=== PATIENT | female | born 1955 | race Two or more races ===

== ENCOUNTER 2019-02-18 01:31 | Observation (INO) | payer MEDICARE, MEDICAID ==
[2019-02-17 15:49] LABS: INR 0.95
[2019-02-18] VITALS (13 sets, daily range): BP systolic 100–136; BP diastolic 51–75; Ht 165.1 cm; Wt 109.8 kg
[~2019-02-18] VITALS: Ht 165.1 cm; Wt 109.8 kg
[~2019-02-18 01:31] MED LIST: ATOR20TA22 PO; HYDR-393 PO; LACT1CAP9 PO; LEVO-3 PO; METF-450 PO; SENN25TA PO
[2019-02-18] MEDS ORDERED: LIDOCAINE MPF 1% 5 ML VIAL ONE (07:35)
[2019-02-18] MEDS ORDERED: METOCLOPRAMIDE 10 MG/2 ML SDV ONE (07:35)
[2019-02-18] MEDS ORDERED: PROPOFOL EMUL(*) 10MG/ML 20 ML 40 ML ONE (07:35)
[2019-02-18] MEDS ORDERED: ONDANSETRON 4 MG/2 ML VIAL ONE (07:35)
[2019-02-18] MEDS ORDERED: DEXAMETHASONE SOD 4 MG/ML VIAL ONE (07:36)
[2019-02-18] MEDS ORDERED: fentaNYL CITR 100 MCG/2 ML AMP ONE (07:37)
[2019-02-18] MEDS ORDERED: ceFAZolin(*) 2GM/D5W 50ML 50 ML IVPB ONE (07:45)
[2019-02-18] MEDS ORDERED: PREGABALIN 150 MG CAPSULE PO ONE (07:45)
[2019-02-18] MEDS ORDERED: BACITRACIN 50000 UNIT/VIAL 100,000 UNIT in NS 0.9% 3000 ML IRRIGATION BAG 3,000 ML IR ONE (07:45)
[2019-02-18] MEDS ORDERED: LIDOCAINE/SOD BICARB 8.4% SYR ID ONE (07:45)
[2019-02-18] MEDS ORDERED: ACETAMINOPHEN 500 MG TAB PO ONE (07:45)
[2019-02-18] MEDS ORDERED: MIDAZOLAM 2 MG/2 ML VIAL IVP PRN (07:45)
[2019-02-18] MEDS ORDERED: TRANEXAMIC AC 1000 MG/10ML SDV 1,000 MG in DEXTROSE 5% 50 ML BAG 50 ML IV ONE (07:45)
[2019-02-18] MEDS ORDERED: CELECOXIB 200 MG CAP PO ONE (07:45)
[2019-02-18] MEDS ORDERED: FAMOTIDINE 20 MG TAB PO ONE (07:45)
[2019-02-18] MEDS ORDERED: ROPIVACAINE/EPI/CLONIDINE/KET 50 ML SYRINGE INJ ONE (07:45)
[2019-02-18] MEDS ORDERED: NORMOSOL R SOLN(*) 1000 ML BAG 1,000 ML IV PRN (07:45)
[2019-02-18] MEDS ORDERED: ePHEDrine 25 MG/5 ML DISP.SYR IVP ONE (08:52)
[2019-02-18] MEDS ORDERED: MAGNESIUM CITRATE 300 ML BTL PO PRN (10:55)
[2019-02-18] MEDS ORDERED: ZOLPIDEM TARTRATE 5 MG TAB PO PRN (10:55)
[2019-02-18] MEDS ORDERED: MAGNESIUM HYDROXIDE* 30ML UDCP PO PRN (10:55)
[2019-02-18] MEDS ORDERED: BISACODYL 10 MG SUPP PR PRN (10:55)
[2019-02-18] MEDS ORDERED: FLUSH 10 ML SYR IVP PRN (10:55)
[2019-02-18] MEDS ORDERED: PROMETHAZINE 25 MG/ML 1 ML AMP IVP PRN (10:55)
[2019-02-18] MEDS ORDERED: ONDANSETRON 4 MG/2 ML VIAL IVP PRN (10:55)
[2019-02-18] MEDS ORDERED: diphenhydrAMINE 25 MG CAP PO PRN (10:55)
[2019-02-18] MEDS ORDERED: LR 1000 ML BAG 1000 ML IV PRN (10:55)
[2019-02-18] MEDS ORDERED: diphenhydrAMINE 50 MG/ML VIAL IVP PRN (10:55)
--- NOTE | 2019-02-18 11:09 | RADIOLOGY IMAGING REPORT ---
FACILITY: [facility] - [place] PATIENT NAME: Omaira Welsh : 1955 MR: [id number] V: [id number] EXAM DATE: ORDERING PHYSICIAN: VIVIANA ACKERMAN TECHNOLOGIST: Location: [facility] [place] Patient: Omaira Welsh : 1955 Visit/Account:[id number] Date of Sevice: 02/18/2019 KNEE LIMITED LEFT Indication: Postoperative. Arthroplasty placement. Comparison: None available Findings: 2 views left knee were obtained. A left total knee arthroplasty with patellar resurfacing has been placed. No periprosthetic fracture. There is gas within the joint space and within the overlying soft tissues. IMPRESSION: 1. Left total knee arthroplasty placement with patellar resurfacing in near-anatomic alignment. Report Dictated By: Ivan Little at 02/18/2019 11:03 AM Report E-Signed By: Ivan Little at 02/18/2019 11:04 AM WSN:[id number]
[2019-02-18] MEDS: oxyCODON/ACET (*)5/325MG (CII) 1 TAB TAB PO PRN ×3 (12:22→20:53)
--- NOTE | 2019-02-18 13:25 | OPERATIVE REPORT 1 ---
EVENT DATE: February 18, 2019 SURGEON: Ramakrishna Rivero MD ANESTHESIOLOGIST: Nate Pike MD ANESTHESIA: General plus spinal. SOAP SLABBER: ELIAZAR Grimaldo PREOPERATIVE DIAGNOSIS Left knee osteoarthritis. POSTOPERATIVE DIAGNOSIS Left knee osteoarthritis. PROCEDURE PERFORMED Left total knee arthroplasty FINDINGS The patient had a significant amount of arthritic changes associated with her knee. ESTIMATED BLOOD LOSS About 150 mL. DRAINS None. SPECIMENS None. COMPLICATIONS None. TOURNIQUET TIME About 15 minutes. IMPLANTS USED DePuy Attune size 5 posterior stabilized femur and a size rotating platform tibia, a 5 x 7 rotating platform poly insert and a 32 anatomic patella. INDICATIONS AND HISTORY This patient is a 63-year-old female that presented to my clinic for evaluation of left knee pain and irritation going on for some time. She continued to have pain and irritation despite conservative management and tried multiple nonoperative attempts and once she was not getting better, she wanted to go ahead with a total knee arthroplasty. We did talk to her very specifically about smoking and also about the pain medication that she is currently on and that both of these have worse outcomes associated with the total knee replacement. She said she understood that and the risk and benefits were discussed at the last clinic visit and informed consent was obtained at that time. DESCRIPTION OF PROCEDURE As the patient was brought in the operating room, she and the procedure were both verified. She was placed supine on the operative table and was given spinal by anesthesia and then laid back down and then was induced and intubated by anesthesia. The left lower extremity was then prepped and draped in the usual fashion and a timeout was observed verifying the correct patient and procedure. The standard incision was made over the anterior aspect of the knee, utilizing the old incision and then curving it back up above the patella. I went through the skin and subcutaneous tissue until I was able to get down to the medial parapatellar approach. I then did a medial parapatellar approach to open up the knee and the knee everted and knee cap to the side. Once I was able to do this, I was then able to flex the knee up. We were able to cauterize a lot of the bleeders and irritation throughout the knee itself on the way and then was able to get to the ACL. Once I got to the ACL, I then removed the ACL and and the majority of the PCL in one block and then was able to take a small rongeur with the front part of the femur in order to then insert the intramedullary guide. The intramedullary guide from the [employer] [place] system was utilized and then we put the first cutting block on 5 and 9, pinned it in place and then cut the distal femur. I was then able to size the distal femur to a size 5. We then put in the 5 four-in-one cutting block and then was able to cut anterior and posterior and then also made the chamfer cuts without any major difficulty. I then put in the notch cutting block without any difficulty and then cut the posterior aspects of the osteophytes on the back-side of the femur. I then turned attention to the tibia where we were able to remove the rest of the menisci after subluxing the tibia forward. This was then followed by drilling the knee centrally into the intramedullary canal of the tibia and then using the intramedullary guide for the tibia in order to cut 3 mm off the medial side. I then pinned the cutting block in place and then cut the proximal tibia without any difficulty. I then cleaned up the rest of the back of the knee and there was still some residual meniscus which had been extruded back in the medial and lateral sides. We were able to take good care of this and then released a little bit of the capsule posteriorly. I then prepped the tibia with a 5 tray without any major issues and then put in the trial components. The trial components flexed and extended very well with the 5 mm insert, but was a little bit better and had a little less slop associated with it with the 7 mm polyp insert with full extension. Therefore, we then irrigated with copious amounts of saline which we had throughout the case using pulsatile lavage. I then everted the patella one more time and then cut 7.5 mm off of the patella and then prepped it to a 32 anatomic patella. I then was able to remove all of the components, put the tourniquet up and then put Irrisept in the wound itself for a couple of minutes. We washed it out and then did it again for a couple of minutes and then we cemented in the components without any difficulty and then did another couple of Irrisept washes without any issues. We then closed the parapatellar approach with a #2 Stratafix, then followed by 2-0 Vicryl in the large fat layer and then the subcutaneous 2-0 Stratafix followed by a 4-0 Monocryl in the skin and then Primapore dressing was applied. The leg was wrapped. The patient was awakened and extubated and transferred to the PACU in stable condition where she will be admitted over night. JIM
--- NOTE | 2019-02-18 13:31 | Hospitalist Consultation ---
History of Present Illness Requesting Physician Dr. Rivero Reason for Consult Medical Management of Comorbidities Chief Complaint s/p right knee replacement History of Present Illness She was admitted s/p right knee replacement. It is reported the surgery went well and without complication. History Problems: (1) Hyperlipidemia Status: Chronic (2) Hypothyroidism Status: Chronic (3) Type 2 diabetes mellitus Status: Chronic Home Meds Reported Medications Sennosides (NATURAL LAXATIVE) 25 Mg Tablet, 2 TAB PO DAILY 02/12/19 Acetaminophen/Hydrocodone (HYDROCODON-ACETAMINOPHN 10-325) 1 Each Tab, 1 EACH PO TID, TAB 02/12/19 Lactobacillus Combo No.10 (PROBIOTIC) 1 Each Capsule, 1 EACH PO DAILY, CAPSULE 02/12/19 Levothyroxine Sodium (LEVOTHYROXINE SODIUM) 100 Mcg Tablet, 100 MCG PO QDAY, TAB 02/12/19 Atorvastatin Calcium (LIPITOR) 20 Mg Tablet, 1 TAB PO QHS, TAB 02/12/19 Metformin Hcl (METFORMIN HCL) 500 Mg Tablet, 1 TAB PO QDAY, TAB 02/12/19 Allergies: Coded Allergies: ciprofloxacin (Verified Allergy, Severe, HIVES,ITCHY, CAN'T BREATHE, 02/10/19) Patient History: Diabetes mellitus MOTHER, FH: [place] (myocardial infarction) FATHER, Hx Smoking: Yes Smoking Status: Light Tobacco Smoker Caffeine Intake: Coffee Caffeine/Cups Per Day: 1 CCD Hx Alcohol Use: No Hx Substance Use Disorder: No Social Drug Use: Never History of IV Drug Use: No Review of Systems All Systems Reviewed/Normal: Yes, Except as Noted Exam Vital Signs Vital Signs Date Time Temp Pulse Resp B/P (MAP) Pulse Ox O2 Delivery O2 Flow Rate FiO2 02/18/19 11:07 97.6 67 16 136/68 (90) 95 Nasal Cannula 3.0 General Appearance: Alert, Awake, No Acute Distress, Afebrile Cardiovascular: Regular Rate and Rhythm Respiratory: No Respiratory Distress, Clear to Auscultation GI: Abd Soft and Non-Tender Psych: Alert & Oriented X3, Appropriate Mood & Affect Assessment and Plan Problems: (1) Status post right knee replacement Status: Acute Assessment & Plan: Followed by Dr. Rivero. She will be placed on Aspirin for DVT prophylaxis. (2) Type 2 diabetes mellitus Status: Chronic Assessment & Plan: Continue chronic Metformin. She will also be placed on AC/HS blood glucose checks and SS insulin #1. (3) Hypothyroidism Status: Chronic Assessment & Plan: Continue chronic Levothyroxine. (4) Hyperlipidemia Status: Chronic Assessment & Plan: Continue chronic Atorvastatin. Venous Thromboembolism Antithrombotics Is Pt On Any Antithrombotics?: No GAURAV APARICIO February 18, 2019 13:31
--- NOTE | 2019-02-18 14:16 | NUR ---
Physical Therapy Impression PT eval completed followed by ambulation to/from BR with FWW and CGA. Pt requires Min/CGA for leg mobility in/out of bed and CPM. CPM trng completed to encourage increased flexion as tolerated with self progression. Physical Therapy Goals 1. Pt to be SBA/Modified indep with supine to/from sit transfers 2. Pt to be SBA/Modified indep with sit to/from stand transfers 3. Pt to ambulate x 100' with least restrictive device and SBA/Modified indep 4. Pt to complete up/down 4 steps with rail and CGA/SBA for safety Patient's Goals
[2019-02-18] MEDS: ceFAZolin(*) 2GM/D5W 50ML 50 ML IVPB SCH (16:29)
[2019-02-18] MEDS: SENNOSIDES 8.6 MG TAB PO SCH (17:08)
[2019-02-18] MEDS: metFORMIN HCL 500 MG TAB PO SCH (17:08)
[2019-02-18] MEDS: LACTOBACILLUS ACIDOPHILUS TAB PO SCH (17:10)
[2019-02-18] MEDS: INSULIN HUM LISPRO 100 UN/ML 3 ML VIAL SUBQ PRN ×2 (17:11→20:54)
[2019-02-18] MEDS: ATORVASTATIN 10 MG TAB PO SCH (20:53)
[2019-02-18] MEDS: ASPIRIN 325 MG TAB PO SCH (20:53)
[2019-02-18] MEDS: HYDROmorphone HCL 2 MG/ML SDV IVP PRN (21:47)
[2019-02-19] VITALS (7 sets, daily range): BP systolic 123–148; BP diastolic 68–80
[2019-02-19] MEDS: ceFAZolin(*) 2GM/D5W 50ML 50 ML IVPB SCH ×2 (01:05→08:41)
[2019-02-19] MEDS: oxyCODON/ACET (*)5/325MG (CII) 1 TAB TAB PO PRN ×7 (01:06→23:39)
[2019-02-19] MEDS: HYDROmorphone HCL 2 MG/ML SDV IVP PRN ×7 (05:08→22:10)
[2019-02-19] MEDS: LEVOTHYROXINE SOD 0.1 MG TAB PO SCH (05:15)
--- NOTE | 2019-02-19 09:05 | Hospitalist Progress Note ---
Subjective Progress Notes Subjective She was admitted s/p knee replacement. She has no complaints this morning. She had no acute events overnight. Patient Complains of: Cardiovascular: No: Chest Pain Respiratory: No: Shortness of Breath Physical Exam Vital Signs Date Time Temp Pulse Resp B/P (MAP) Pulse Ox O2 Delivery O2 Flow Rate FiO2 02/19/19 07:24 98.7 65 20 129/77 (94) 91 Nasal Cannula 1.5 Intake and Output 02/19/19 07:00 Intake Total 3100 ml Balance 3100 ml Intake Oral 1300 ml IV Total 1800 ml # Voids 7 General Appearance: Alert, Awake, No Acute Distress, Afebrile Neuro: No Gross deficits Cardiovascular: Regular Rate and Rhythm Respiratory: No Respiratory Distress, Clear to Auscultation GI: Soft and Non-Tender Psych: Alert & Oriented X3, Appropriate Mood & Affect Result Diagram: 02/19/19 0644 Assessment and Plan Problems: (1) Status post right knee replacement Status: Acute Assessment & Plan: Followed by Dr. Rivero. She will be placed on Aspirin for DVT prophylaxis. (2) Type 2 diabetes mellitus Status: Chronic Assessment & Plan: Continue chronic Metformin. She will also be placed on AC/HS blood glucose checks and SS insulin #1. (3) Hypothyroidism Status: Chronic Assessment & Plan: Continue chronic Levothyroxine. (4) Hyperlipidemia Status: Chronic Assessment & Plan: Continue chronic Atorvastatin. Exam Sepsis Risk: No Definite Risk GAURAV APARICIO GROCERY CLERK SELLING February 19, 2019 09:05
--- NOTE | 2019-02-19 14:04 | NUR ---
This Physical Therapist or Certified Endoscopy Technician was present for the entire physical therapy session directing the services, making the skilled judgement, and was not engaged in treating another patient or doing another task at the same time as the treatment session. Addendum: 02/19/19 at 1404 by OSIEL HOBBS PT Amended: Links added.
--- NOTE | 2019-02-19 14:04 | NUR ---
Physical Therapy Impression Pt tolerated mobility well, despite high levels of pain. Pt xfered sit<>stand w/ CGAx1. Before ambulation, Pt was taken off O2 and spO2 remained >90%. Pt ambulated 50 feet w/ CGAx1 and RW. Upon returning to sitting EOB, spO2 had dropped to 82% on room air, and O2 was put back on. Pt required Domonique w/ bed mobility to lift surgical leg.Pt was put on CPM at 0-35 degrees, patient c/o pain with extension portion. Pt appeared to be lacking at least 10 degrees of extension so Pt was taken off CPM and heel prop was used instead. Pt was also instructed on doing "3 quad sets every commercial break" to further restore knee extension/quad activation. Pt was left in bed with all needs met and in room. Pt would benefit from further skilled PT care to restore ROM/strength to functional requirements. Rec OP PT at discharge. Physical Therapy Goals 1. Pt to be SBA/Modified indep with supine to/from sit transfers 2. Pt to be SBA/Modified indep with sit to/from stand transfers 3. Pt to ambulate x 100' with least restrictive device and SBA/Modified indep 4. Pt to complete up/down 4 steps with rail and CGA/SBA for safety Patient's Goals
--- NOTE | 2019-02-19 16:36 | NUR ---
Physical Therapy Impression Pt still tolerating ambulation well, despite pain. Pt performed therex supine in bed consisting of: ankle pumps, quad sets, glute sets, heel slides, and SLR. Zheng provided for SLR. Patient had difficulty with heel slides and moved in a limited range. Pt was SBA for bed mobility, using gait belt as a leg property clerk and performed sit<>stand w/ CGAx1.Pt ambulated 75 ft w/CGAx1 and O2 of 2L. After ambulation, returned to EOB and sat with L leg in bed and R leg hanging down, was left with all needs met, call light in reach, and O2 on. Pt would beneift from further skilled PT care to improve strength/ROM and work on stair training. OP PT is recommended at discharge. Physical Therapy Goals 1. Pt to be SBA/Modified indep with supine to/from sit transfers 2. Pt to be SBA/Modified indep with sit to/from stand transfers 3. Pt to ambulate x 100' with least restrictive device and SBA/Modified indep 4. Pt to complete up/down 4 steps with rail and CGA/SBA for safety Patient's Goals
--- NOTE | 2019-02-19 16:37 | NUR ---
This Physical Therapist or Employee Relations Advisor was present for the entire physical therapy session directing the services, making the skilled judgement, and was not engaged in treating another patient or doing another task at the same time as the treatment session. Addendum: 02/19/19 at 1637 by OSIEL HOBBS PT Amended: Links added.
[2019-02-19] MEDS: LACTOBACILLUS ACIDOPHILUS TAB PO SCH (16:55)
[2019-02-19] MEDS: metFORMIN HCL 500 MG TAB PO SCH (16:55)
[2019-02-19] MEDS: SENNOSIDES 8.6 MG TAB PO SCH (16:56)
[2019-02-19] MEDS: ASPIRIN 325 MG TAB PO SCH (20:36)
[2019-02-19] MEDS: ATORVASTATIN 10 MG TAB PO SCH (20:36)
[2019-02-20 03:29] VITALS: BP 140/78
[2019-02-20] MEDS: oxyCODON/ACET (*)5/325MG (CII) 1 TAB TAB PO PRN ×3 (03:39→09:13)
[2019-02-20] MEDS: LEVOTHYROXINE SOD 0.1 MG TAB PO SCH (06:14)
[2019-02-20 07:11] VITALS: BP 130/82
[2019-02-20] MEDS ORDERED: ASPI-757 PO (07:31)
--- NOTE | 2019-02-20 09:47 | Hospitalist Progress Note ---
Subjective Progress Notes Subjective She was admitted s/p knee replacement. She has no complaints this morning. She had no acute events overnight. Patient Complains of: Cardiovascular: No: Chest Pain Respiratory: No: Shortness of Breath Physical Exam Vital Signs Date Time Temp Pulse Resp B/P (MAP) Pulse Ox O2 Delivery O2 Flow Rate FiO2 02/20/19 07:11 98.3 74 22 130/82 (98) 90 Room Air 02/20/19 03:29 2.0 Intake and Output 02/20/19 01:00 Intake Total 343 ml Balance 343 ml Intake Oral 283 ml IV Total 60 ml # Voids 7 General Appearance: Alert, Awake, No Acute Distress, Afebrile Neuro: No Gross deficits Cardiovascular: Regular Rate and Rhythm Respiratory: No Respiratory Distress, Clear to Auscultation GI: Soft and Non-Tender Psych: Alert & Oriented X3, Appropriate Mood & Affect Result Diagram: 02/20/19 0534 Assessment and Plan Problems: (1) Status post right knee replacement Status: Acute Assessment & Plan: Followed by Dr. Rivero. She will be placed on Aspirin for DVT prophylaxis. (2) Type 2 diabetes mellitus Status: Chronic Assessment & Plan: Continue chronic Metformin. She will also be placed on AC/HS blood glucose checks and SS insulin #1. (3) Hypothyroidism Status: Chronic Assessment & Plan: Continue chronic Levothyroxine. (4) Hyperlipidemia Status: Chronic Assessment & Plan: Continue chronic Atorvastatin. Exam Sepsis Risk: No Definite Risk GAURAV APARICIOP February 20, 2019 09:47
[2019-02-20] MEDS ORDERED: PER PO (10:24)
--- NOTE | 2019-02-20 14:59 | NUR ---
Physical Therapy Impression Pt demonstated improved mobility and was able to negotiate stairs without signficant difficulty. Pt xfered sit to supine w/ SBA and use of gait belt as leg painting machine operator. Pt demonstated SBA xfers from toilet to ambulatory and to sitting on EOB. Pt ambulated 150 ft w/ RW and CGAx1, demonstrating a step-to pattern. SpO2 was 88% on room air thus O2 was not used for ambulation.Pt was able to negotiate 1 stair w/ use of L railing and holding PT hand on R. Verbal cues for foot sequencing and to push through therapist hand were provided. Upon returnig to bed Pt was educated on progressive adjustments of CPM. Pt was instructed to increase by 5 degrees of flexion/day, if tolerable. Pt demonstrated an ability to change settings of CPM. Pt was left in bed with present in room and call light in reach. Pt is safe for discharge when medically apporpriate. Rec OP PT. Physical Therapy Goals 1. Pt to be SBA/Modified indep with supine to/from sit transfers 2. Pt to be SBA/Modified indep with sit to/from stand transfers 3. Pt to ambulate x 100' with least restrictive device and SBA/Modified indep 4. Pt to complete up/down 4 steps with rail and CGA/SBA for safety Patient's Goals
--- NOTE | 2019-02-20 15:00 | NUR ---
This Physical Therapist or Architectural Associate was present for the entire physical therapy session directing the services, making the skilled judgement, and was not engaged in treating another patient or doing another task at the same time as the treatment session. Addendum: 02/20/19 at 1500 by OSIEL HOBBS PT Amended: Links added.
--- NOTE | 2019-03-04 14:11 | DISCHARGE SUMMARY ---
DATE OF ADMISSION: February 18, 2019 DATE OF DISCHARGE: February 20, 2019 PRINCIPAL DIAGNOSIS Total hip arthroplasty. SURGEON Ramakrishna Rivero MD CONSULTATIONS PT as well as Internal Medicine. COMPLICATIONS None. CONDITION Stable upon transfer to home. DISPOSITION To home. MEDICATIONS Resume all outpatient medications at home and then start pain medication as prescribed. HISTORY This patient presented to my clinic for evaluation of right hip pain and irritation going on for some time. She continued to have pain and irritation despite conservative management so she wanted to go ahead with a total hip arthroplasty. On the above date, February 18, 2019, the risks and benefits were discussed with the patient and informed consent was obtained before the last surgery and then we got her admitted before the actual surgery was completed. DESCRIPTION OF HOSPITAL COURSE The patient was admitted shortly after the procedure on February 18, 2019. She did well initially overall with pain control during the spinal time. After the spinal wore off, she had a little more pain and irritation associated with pain control so, therefore, she did have to stay a couple of more nights. Once she was able to get up and move around without any major difficulty, we were able to get her up and standing a little bit and moving around without any major difficulty. We then were able to get her pain under control in the right groin area so, therefore, she was then discharged home on February 20, 2019, without any difficulty. JIM
== END 2019-02-20 06:58 | disposition home or self-care (01) ==
LOC: OR 01:31 → MED 11:05
PROVIDERS: ADMIT Orthopaedic Surgery; ATTEND Orthopaedic Surgery
DX: M17.12 Unilateral primary osteoarthritis, left knee (principal); E11.9 Type 2 diabetes mellitus without complications; E03.9 Hypothyroidism, unspecified; E78.00 Pure hypercholesterolemia, unspecified; Z79.01 Long term (current) use of anticoagulants
CPT/HCPCS: 27447; 36415; 36416; 73560; 82948; 85014; 85018; 85610; 86850; 86900; 86901; 96372; 97110; 97116; 97161; 97530; A9270; C1713; C1776; G0378; J1100; J1170; J1815; J2001; J2250; J2405; J2704; J2765; J3010; J7060; J0690